=== PATIENT | male | born 1950 | race Caucasian/White ===

== ENCOUNTER 2018-09-27 20:11 | Emergency (ER) | payer MEDICARE ==
[2018-09-27] MEDS: MORPHINE SULFATE INJ 10 MG/ML VIAL IV ONE ×2 (21:25→23:43)
[2018-09-27] MEDS ORDERED: SODIUM CHLORIDE 0.9% 1000ML 1,000 ML ONE (21:41)
[2018-09-27] MEDS ORDERED: MULTIPLE VITAMIN 10 ML VIAL ONE (21:41)
[2018-09-27] MEDS ORDERED: THIAMINE HCL INJ 100 MG/ML VIAL ONE (21:54)
[2018-09-27] MEDS: FOLIC ACID INJ 5 MG/ML VIAL IV ONE (22:05)
[2018-09-27] MEDS: MULTIPLE VITAMIN INJ 10 ML in SODIUM CHLORIDE 0.9% 1000ML 1,000 ML IVPB ONE (22:05)
[2018-09-27] MEDS: THIAMINE HCL INJ 100 MG/ML VIAL IV ONE (22:06)
--- NOTE | 2018-09-27 22:06 | RAD ---
EXAM: XR Pelvis, 1 or 2 Views CLINICAL HISTORY: The patient is 68 years old and is Male; fall with left hip pain TECHNIQUE: Frontal view of the pelvis. COMPARISON: No relevant prior studies available. FINDINGS: BONES/JOINTS: The SI joints and pubic symphysis are intact without evidence of diastases. Left subcapital fracture is present. The femoral heads are well located. No dislocation. SOFT TISSUES: Unremarkable. IMPRESSION: Left subcapital femoral neck fracture. Electronically signed by: Anitha Charles MD 09/27/2018 10:04 PM CDT
--- NOTE | 2018-09-27 22:06 | RAD ---
EXAM: XR Chest, 1 View CLINICAL HISTORY: The patient is 68 years old and is Male; fall with left hip pain TECHNIQUE: Frontal view of the chest. COMPARISON: No relevant prior studies available. FINDINGS: LUNGS: Unremarkable. No consolidation. PLEURAL SPACE: Unremarkable. No pneumothorax. HEART: Unremarkable. No cardiomegaly. Atherosclerosis of the aorta is present. MEDIASTINUM: Unremarkable. BONES/JOINTS: Unremarkable. IMPRESSION: No acute cardiopulmonary process. Electronically signed by: Anitha Charles MD 09/27/2018 10:04 PM CDT
--- NOTE | 2018-09-27 22:07 | RAD ---
EXAM: XR Left Hip With Pelvis When Performed, 2 or 3 Views CLINICAL HISTORY: The patient is 68 years old and is Male; fall with left hip pain TECHNIQUE: Two or three views of the left hip, with pelvis when performed. COMPARISON: No relevant prior studies available. FINDINGS: BONES/JOINTS: A left subcapital femoral neck fracture is present. The femoral head is well located. The remaining bones of the pelvis are intact. No dislocation. SOFT TISSUES: Unremarkable. IMPRESSION: Left femoral neck fracture. Electronically signed by: Anitha Charles MD 09/27/2018 10:05 PM CDT
[2018-09-27] MEDS: SOD CHL 3% *HYPERTONIC* 500ML 160 ML IVS ONE (22:12)
--- NOTE | 2018-09-27 22:33 | ED.PDOC ---
History of Present Illness - General Chief Complaint: Trauma Stated Complaint: fell, left hip pain Time Seen by Provider: 09/27/18 20:15 Source: patient Exam Limitations: no limitations - History of Present Illness Initial Comments: the patient's 68-year-old male presenting to the emergency room after having fallen accidentally at home. He has left hip pain. He is n eurovascularly intact. the patient does have long-standing COPD and is apparently supposed to wear oxygen normally though he rarely does. The patient also drinks daily 8-10 beers according to him. he does have some mild abrasions to his upper extremities from the fall but no other significant injuries are noted. Timing/Duration: momentarily Severity: severe Improving Factors: immobilization Worsening Factors: movement Associated Symptoms: denies symptoms Allergies/Adverse Reactions: Allergies NO KNOWN ALLERGY Allergy (Verified 09/27/18 20:48) Home Medications: Ambulatory Orders Aspirin [Baby Aspirin] 81 mg PO DAILY 11/11/12 Diazepam [Valium] 10 mg PO BID 11/11/12 Dicyclomine HCl 20 mg PO BID 11/11/12 Hyoscyamine Sulfate [Anaspaz] 0.125 mg PO BID 11/11/12 Metoprolol Tartrate [Lopressor] 25 mg PO BID 11/11/12 Multiple Vitamins W/ Minerals 1 ea PO DAILY 11/11/12 Pravastatin Sodium [Pravachol] 20 mg PO DAILY 11/11/12 Sertraline HCl [Zoloft] 50 mg PO HS 11/11/12 Tamsulosin [Flomax] 0.4 mg PO HS 11/11/12 Albuterol Sulfate [Proair Hfa] 90 mcg IN QID PRN #0 11/12/12 Azithromycin Tab [Zithromax] 250 mg PO DAILY #0 tab 11/12/12 Tiotropium [place] Monohydrate [Spiriva Handihaler] 1 puff IN DAILY #0 cap 11/12/12 predniSONE 0 mg PO BID #10 tab 11/12/12 Review of Systems - Review of Systems Constitutional: States: no symptoms reported EENTM: States: no symptoms reported Respiratory: States: no symptoms reported Cardiology: States: no symptoms reported Gastrointestinal/Abdominal: States: no symptoms reported Genitourinary: States: no symptoms reported Musculoskeletal: States: see HPI Skin: States: no symptoms reported Neurological: States: no symptoms reported Endocrine: States: no symptoms reported All other Systems: No Change from Baseline Past Medical History (General) - Patient Medical History Hx Seizures: No Hx Stroke: No Hx Dementia: No Hx Asthma: No Hx of COPD: Yes Hx Cardiac Disorders: No Hx Congestive Heart Failure: No Hx Pacemaker: No Hx Hypertension: Yes Hx Thyroid Disease: No Hx Diabetes: No Hx Gastroesophageal Reflux: No Hx Renal Disease: No Hx Cancer: No Hx of HIV: No Hx Hepatitis C: No Hx MRSA: No Surgical History: no surgical history - Vaccination History Hx Tetanus, Diphtheria Vaccination: No Hx Influenza Vaccination: No Hx Pneumococcal Vaccination: No - Social History Cigarettes Packs Per Day: 1 Hx Alcohol Use: Yes - daily Hx Substance Use: No Hx Physical Abuse: No Hx Emotional Abuse: No Family Medical History - Family History Mother Family History: Unknown Physical Exam - Physical Exam General Appearance: Alert, Unkempt - he is obviously a little bit inebriated., Other - the patient is quite interactive. He is in no distress until he moves left leg. Eye Exam: bilateral normal Ears, Nose, Throat: hearing grossly normal, normal ENT inspection, normal pharynx Neck: full range of motion, supple Respiratory: no respiratory distress, no accessory muscle use, other - chronic dry rales. Good air movement. Cardiovascular/Chest: normal peripheral pulses, regular rate, rhythm, no edema Peripheral Pulses: radial,right: 2+, radial,left: 2+, dorsalis pedis,right: 2+, dorsalis pedis,left: 2+, posterior tibialis,right: 2+, posterior tibialis,left: 2+ Gastrointestinal/Abdominal: non tender, soft Rectal Exam: deferred, other - pelvis is stable Back Exam: no CVA tenderness, no vertebral tenderness Extremity: no pedal edema, no calf tenderness, normal capillary refill, other - left hip pain with any movement. Mild abrasion where he fell. no Obvious laceration. 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 He does have a left femur neck fracture. He will require repair in order to get back active. The patient does have significant hyponatremia which likely contributed. This is likely multifactorial related to his COPD and alcohol intake. He has received a dose of folate, thiamine and multivitamin. He is receiving hypertonic saline for correction of hyponatremia. Continue oxygen for his COPD. Aside from the hip pain he is in no acute distress. The patient will have to be monitored for any evidence of withdrawal. He does have long-standing anxiety issues and is apparently benzodiazepine dependent already. due to these reasons the patient is deemed too high risk to have the repair performed here. For this reason he is being transferred for higher level of care. acceptance at receiving facility is greatly appreciated. 09/27/18 23:15 - Results/Orders Results/Orders: chest x-ray shows no acute pathology. X-ray of the left hip and pelvis show a minimally displaced, mildly impacted femur neck fracture. Laboratory Tests 09/27/18 09/27/18 09/27/18 20:15 20:15 20:15 WBC 5.8 RBC 3.85 L Hgb 13.7 L Hct 40.0 L MCV 103.8 H MCH 35.5 H MCHC 34.2 RDW 13.1 Plt Count 215 MPV 7.4 Absolute Neuts (auto) 2.90 Absolute Lymphs (auto) 2.10 Absolute Monos (auto) 0.50 Absolute Eos (auto) 0.20 Absolute Basos (auto) 0.00 Neutrophils % 49.8 Lymphocytes % 36.5 Monocytes % 8.7 Eosinophils % 4.3 Basophils % 0.7 PT 9.7 INR 0.97 Sodium 121 L Potassium 4.1 Chloride 89 L Carbon Dioxide 21 Anion Gap 15.1 BUN < 5 L Creatinine 0.70 BUN/Creatinine Ratio 7.1 L Random Glucose 74 Serum Osmolality 240.0 L* Calcium 8.4 Total Bilirubin 0.7 AST 54 H ALT 44 Alkaline Phosphatase 95 Serum Total Protein 6.8 Albumin 4.1 Globulin 2.7 Albumin/Globulin Ratio 1.5 Urine Color Urine Appearance Urine pH Ur Specific [place] Urine Protein Urine Glucose (UA) Urine Ketones Urine Blood Urine Nitrite Urine Bilirubin Urine Urobilinogen Ur Leukocyte Esterase Urine RBC Urine WBC Ur Epithelial Cells Urine Bacteria 09/27/18 22:08 WBC RBC Hgb Hct MCV MCH MCHC RDW Plt Count MPV Absolute Neuts (auto) Absolute Lymphs (auto) Absolute Monos (auto) Absolute Eos (auto) Absolute Basos (auto) Neutrophils % Lymphocytes % Monocytes % Eosinophils % Basophils % PT INR Sodium Potassium Chloride Carbon Dioxide Anion Gap BUN Creatinine BUN/Creatinine Ratio Random Glucose Serum Osmolality Calcium Total Bilirubin AST ALT Alkaline Phosphatase Serum Total Protein Albumin Globulin Albumin/Globulin Ratio Urine Color Yellow Urine Appearance Clear Urine pH 5.5 Ur Specific Douglass <= 1.005 Urine Protein Negative Urine Glucose (UA) Negative Urine Ketones Negative Urine Blood Negative Urine Nitrite Negative Urine Bilirubin Negative Urine Urobilinogen 0.2 Ur Leukocyte Esterase Negative Urine RBC 0 Urine WBC 0 Ur Epithelial Cells 0 Urine Bacteria 0 Departure - Departure Clinical Impression: Hyponatremia Fracture of neck of left femur Qualifiers: Encounter type: initial encounter Fracture type: closed Qualified Code(s): S72.002A - Fracture of unspecified part of neck of left femur, initial encounter for closed fracture Alcohol dependence Qualifiers: Substance use status: with intoxication Complication of substance-induced condition: uncomplicated Qualified Code(s): F10.220 - Alcohol dependence with intoxication, uncomplicated Disposition: Transfer to Hospital Departure Forms: ED Discharge - Pt. Copy, Patient Portal Self Enrollment Instructions: DI for Trauma Referrals: Elvin Hayden MD [Primary Care Provider] - 1-2 Weeks Home Medications: Ambulatory Orders Aspirin [Baby Aspirin] 81 mg PO DAILY 11/11/12 Diazepam [Valium] 10 mg PO BID 11/11/12 Dicyclomine HCl 20 mg PO BID 11/11/12 Hyoscyamine Sulfate [Anaspaz] 0.125 mg PO BID 11/11/12 Metoprolol Tartrate [Lopressor] 25 mg PO BID 11/11/12 Multiple Vitamins W/ Minerals 1 ea PO DAILY 11/11/12 Pravastatin Sodium [Pravachol] 20 mg PO DAILY 11/11/12 Sertraline HCl [Zoloft] 50 mg PO HS 11/11/12 Tamsulosin [Flomax] 0.4 mg PO HS 11/11/12 Albuterol Sulfate [Proair Hfa] 90 mcg IN QID PRN #0 11/12/12 Azithromycin Tab [Zithromax] 250 mg PO DAILY #0 tab 11/12/12 Tiotropium [place] Monohydrate [Spiriva Handihaler] 1 puff IN DAILY #0 cap 11/12/12 predniSONE 0 mg PO BID #10 tab 11/12/12 Transfer to Outside Facility - Transfer Information Accepting Provider:: dr nj Accepting Facility: [facility] Reason for Transfer: specialized care not available
[2018-09-28 00:14] VITALS: BP 152/92; TEMP 97.9; O2SAT 95
== END 2018-09-28 00:30 | disposition short-term general hospital (02) ==
LOC: ER 20:11
DX: S72.002A Fracture of unspecified part of neck of left femur, initial encounter for closed fracture (principal); E87.1 Hypo-osmolality and hyponatremia; F10.220 Alcohol dependence with intoxication, uncomplicated; J44.9 Chronic obstructive pulmonary disease, unspecified; F41.9 Anxiety disorder, unspecified; F13.20 Sedative, hypnotic or anxiolytic dependence, uncomplicated; F17.210 Nicotine dependence, cigarettes, uncomplicated; I10 Essential (primary) hypertension; Z99.81 Dependence on supplemental oxygen; Z79.899 Other long term (current) drug therapy; Z79.82 Long term (current) use of aspirin; W19.XXXA Unspecified fall, initial encounter; Y92.009 Unspecified place in unspecified non-institutional (private) residence as the place of occurrence of the external cause
CPT/HCPCS: 36415; 71045; 72170; 73502; 80053; 81001; 85025; 85610; J2270; J3411; J7030; J7799